=== PATIENT | male | born 1950 | race Caucasian/White ===

== ENCOUNTER 2016-11-30 19:20 | Emergency (ER) | payer OTHER | END 2016-11-30 23:58 | disposition home or self-care (01) | LOC: ER1 19:20 | DX: S61.211A Laceration without foreign body of left index finger without damage to nail, initial encounter (principal); S61.213A Laceration without foreign body of left middle finger without damage to nail, initial encounter; W29.8XXA Contact with other powered hand tools and household machinery, initial encounter; J44.9 Chronic obstructive pulmonary disease, unspecified; Y92.009 Unspecified place in unspecified non-institutional (private) residence as the place of occurrence of the external cause; F17.200 Nicotine dependence, unspecified, uncomplicated | CPT/HCPCS: 12002; 73130; 96365; 99283; J0690; J7050 ==

== ENCOUNTER → 2020-08-31 | Outpatient (CLI) | payer MEDICARE | LOC: CT 11:39 | DX: C91.10 Chronic lymphocytic leukemia of B-cell type not having achieved remission (principal) | CPT/HCPCS: 36415; 71260; 82565; Q9963 ==

== ENCOUNTER → 2022-02-07 | Outpatient (CLI) | payer OTHER | LOC: HEART 5 08:43 | DX: M79.605 Pain in left leg (principal); M79.604 Pain in right leg ==